=== PATIENT | female | born 1965 | race African-American/Black ===

== ENCOUNTER 2022-10-31 16:23 | Emergency (ER) | payer OTHER, SELFPAY ==
[2022-10-31 16:39] VITALS: BP 179/116; PULSE 78; RESP 16; TEMP 35.9; O2SAT 99
--- NOTE | 2022-10-31 16:39 | ECG_ITS ---
Measurements Intervals [place] Rate: 63 P: 52 IN: 160 QRS: 18 QRSD: 85 T: 59 QT: 401 QTc: 410 Interpretive Statements SINUS RHYTHM POSSIBLE LEFT ATRIAL ENLARGEMENT LEFT VENTRICULAR HYPERTROPHY WITH ST-T CHANGE BORDERLINE ECG NO PREVIOUS ECG AVAILABLE FOR COMPARISON Electronically Signed On 11-01-2022 7:51:38 [employer]ER COL[employer] by Davi Haddad D.O.
--- NOTE | 2022-10-31 16:40 | ED.ANXIETY ---
HPI - Anxiety General Chief Complaint: Dizziness Stated Complaint: elevated blood pressure Time Seen by Provider: 10/31/22 16:35 Source: patient, family and RN notes reviewed History of Present Illness HPI narrative: Patient is a 57-year-old female who presents to Urgent Care with her friend with complaints of elevated blood pressure since October 13. Patient states that she is from [place] and had been checking it daily there and her readings were 140s over 80s. Patient states that since she has been staying with her friend her blood pressures have been more elevated. Patient states she has had a frontal headache. States that she takes naproxen daily for knee pain off and it does help the headaches. Patient denies any nausea, confusion, weakness, fatigue, brain fog. Patient states that she has been taking her blood pressure several times per day and seems to be causing herself more anxiety. Patient's friend is very high strong and she states that she does contribute to her frustration and anxiety. States that they have been arguing a lot and that is not her typical behaviors. Patient does have a primary care and does have an appointment on Tuesday. Patient states that she leaves early next week to go back to [place]. Patient is currently denying any chest pain or shortness of breath. Patient was tearful throughout triage. No other acute complaints. No acute distress noted. Patient aware of the plan of care. Some parts of this dictation were generated by voice recognition software and may contain typographical and/or grammatical inaccuracies. Related Data Home Medications Medication Instructions Recorded Confirmed albuterol sulfate 90 mcg/actuation inhalation 10/31/22 aerosol inhaler escitalopram oxalate 20 mg tablet mg 10/31/22 10/31/22 naproxen 500 mg tablet mg 10/31/22 quetiapine 25 mg tablet mg 10/31/22 Allergies Allergy/AdvReac Type Severity Reaction Status Date / Time No Known Allergies Allergy Unknown Verified 10/31/22 16:47 Review of Systems Review of Systems: CONSTITUTIONAL: Denies fever, chills, or sweats. EYES: Denies visual changes, redness, or discharge. ENT: Denies rhinorrhea, congestion, sore throat, or otalgia. CARDIOVASCULAR: Denies chest pain, palpitations, or edema. Reports of elevated blood pressure RESPIRATORY: Denies cough or dyspnea. GASTROINTESTINAL: Denies abdominal pain, nausea, vomiting, or diarrhea. GENITOURINARY: Denies dysuria or hematuria. SKIN: Denies rash or itching. MUSCULOSKELETAL: Denies back pain, joint pain, or myalgia. NEUROLOGIC: Reports headache All other systems reviewed are negative, except as documented in HPI. PMFSH Comments At the time of my signature, I reviewed and agree with the nursing past medical, surgical, social, and family history. There is no relevant family history pertinent to the patient complaint. Exam Narrative: GENERAL: This is a well-nourished, well-developed patient, in no apparent distress. HEAD: normocephalic, atraumatic. EYES: PERRL. Sclera clear/white. Vision is grossly intact. EARS: External ears normal NOSE: External nose normal with no obvious nasal discharge, nares without redness, no rhinorrhea. THROAT: Mucous membranes moist NECK: Neck supple CARDIOVASCULAR: Regular rate and rhythm RESPIRATORY: Clear to auscultation. Breath sounds equal bilaterally. No wheezes, rales, or rhonchi. SKIN: warm, intact with no suspicious lesions or rash, good texture and turgor. NEURO: awake, alert, and oriented to person, place and time. There were no obvious focal neurologic abnormalities. EXTREMITIES: No clubbing, cyanosis, or edema. Course Course Level of Care: Express Care Visit Vital Signs Vital signs: Vital Signs Temperature 96.6 F L 10/31/22 16:39 Pulse Rate 78 10/31/22 16:39 Respiratory Rate 16 10/31/22 16:39 Blood Pressure 179/116 H 10/31/22 16:39 Pulse Oximetry 99 10/31/22 16:39 Temperature 96.6 F L
[2022-10-31 16:55] VITALS: BP 170/116
== END 2022-10-31 17:15 | disposition home or self-care (01) ==
PROVIDERS: Emergency Provider Nurse Practitioner Family
DX: F41.9 Anxiety disorder, unspecified (principal); I10 Essential (primary) hypertension; F31.9 Bipolar disorder, unspecified
CPT/HCPCS: 93005; 99203; G0463